=== PATIENT | female | born 1945 | race Caucasian/White ===

== ENCOUNTER 2018-01-07 22:02 | Inpatient (IN) | payer OTHER, BC ==
[~2018-01-07] VITALS: Ht 160 cm; Wt 118.7 kg
[~2018-01-07 22:02] MED LIST: ADVAIR; ADVAIR 250/501 DISK IH; ALEVE220 MG PO; ALTACE10 MG PO; AMLODIPINE BESYL5 MG PO; ARIMIDEX1 MG PO; ASCORBIC ACID500 M3 PO; ASPIR 8181 M1 PO; CELEXA20 MG PO; CELEXA40 MG PO; CENTRUM SILVER1 EAC3 PO; CIPRO500 MG PO; CO Q-10100 MG PO; CO Q-10400 MG PO; DILTIAZEM 24HR240 MG PO; FLONASE16 G1 BOTH NARES; HYDROCHLOROTHIA25 MG PO; LEVAQUIN750 MG PO; LIPITOR20 MG PO; LISINOPRIL20 MG PO; MUCINEX600 MG PO; NORVASC5 MG PO; PROAIR HFA8.5 GM IH; PROVENTIL,2.5 MG/3 M IH; REQUIP1 MG PO; VISION VITAMIN1 EACH PO; VITAMIN B12 100MCG PO; VITAMIN D1000 UNIT PO; XARELTO20 MG PO; ZYRTEC10 M3 PO
[2018-01-08 06:35] VITALS: BP 126/70
[2018-01-08 11:25] VITALS: BP 153/81
[2018-01-08 16:16] VITALS: BP 151/85
[2018-01-08 18:17] LABS: HEMATOCRIT 36.4 % (36.0-46.0); HEMOGLOBIN 11.7 G/DL (11.9-15.5); MCV 90.3 FL (83-99)
[2018-01-08 20:16] VITALS: BP 138/78
[2018-01-08 23:58] VITALS: BP 109/68
[2018-01-09 04:20] VITALS: BP 119/73
[2018-01-09 06:34] LABS: CHLORIDE 105 MEQ/L (99-109); CREATININE 0.8 MG/DL (0.6-1.3); GFR ESTIMATE (CALCULATED) > 59 mL/min/; GLUCOSE 117 mg/dL (70-99); POTASSIUM 4.7 MEQ/L (3.7-5.4); SODIUM 139 MEQ/L (136-147); UREA NITROGEN (BUN) 13 mg/dL (9-23)
[2018-01-09 07:34] VITALS: BP 107/55
[2018-01-09] MEDS ORDERED: OXYCODONE HCL5 MG PO (09:14)
[2018-01-09 11:58] VITALS: BP 115/65
[2018-01-09 15:41] VITALS: BP 123/65
[2018-01-09 20:19] VITALS: BP 121/67
[2018-01-10] VITALS: BP 149/70
[2018-01-10 04:23] VITALS: BP 124/66
[2018-01-10 08:13] VITALS: BP 138/76
[2018-01-10 12:27] VITALS: BP 129/64
[2018-01-10 16:01] VITALS: BP 144/78
[2018-01-10 20:03] VITALS: BP 129/76
[2018-01-11 00:21] VITALS: BP 119/76
[2018-01-11 04:10] VITALS: BP 133/82
[2018-01-11 08:23] VITALS: BP 123/64
[2018-01-11] MEDS ORDERED: XARELTO10 MG PO (09:53)
[2018-01-11 12:12] VITALS: BP 136/57
== END 2018-01-11 16:30 | DRG 470 ==
LOC: ENRESERV 22:02 → 2SOUTH 01-08 05:29 → 3WEST 01-08 05:29 → 2SOUTH 01-08 09:34 → 3WEST 01-08 10:55 → 2SOUTH 01-08 12:09 → 3WEST 01-11 09:40 → ENRESERV 01-11 09:43 → CANRESERV 01-11 11:44 → 3WEST 01-11 16:30
PROVIDERS: Orthopaedic Surgery
DX: M17.12 Unilateral primary osteoarthritis, left knee (principal); Z68.42 Body mass index [BMI] 45.0-49.9, adult; Z79.01 Long term (current) use of anticoagulants; I48.2 Chronic atrial fibrillation; E66.01 Morbid (severe) obesity due to excess calories; F32.9 Major depressive disorder, single episode, unspecified; G25.81 Restless legs syndrome; E55.9 Vitamin D deficiency, unspecified; I50.32 Chronic diastolic (congestive) heart failure; I11.0 Hypertensive heart disease with heart failure; J44.9 Chronic obstructive pulmonary disease, unspecified; G47.33 Obstructive sleep apnea (adult) (pediatric)
CPT/HCPCS: 71275; 80048; 82948; 85014; 85018; 93971; 94640; 94799; 97530 GO; 97530 GP; C1713; C1776; J0330; J0690; J1885; J2250; J2795; J3010; J7050; J7120; L1820; S0020